=== PATIENT | female | born 1970 | race Caucasian/White ===

== ENCOUNTER 2016-11-26 14:51 | Emergency (ER) | payer MEDICARE ==
[~2016-11-26 14:51] MED LIST: ACETAMINOPHEN PO; ADVAIR 250-501 EACH IH; ADVAIR 2501 DISK W/D IH; ADVAIR 2501 DISK W/D PO; ADVAIR 500-501 EACH; ADVAIR INH; ALBUTEROL 0.5ML INH; ALBUTEROL MININEB NEB; ALBUTEROL17 G1 INH; ALBUTEROL17 GM; ALBUTEROL17 GM INH; AMOXICILLIN PO; ATARAX PO; ATROVENT NEB; AUGMENTIN PO; AZITHROMYCIN 250MG PO; AZITHROMYCIN250 MG PO; CELEXA20 MG PO; CIPRO PO; CIPRO250 MG; CLARINEX5 MG PO; COMBIVENT INH14.7 GM; COMBIVENT INH14.7 GM INH; COMBIVENT MININEB INH; COMBIVENT U/D3 M1; DUONEB 2.5-0.5 M3 ML HHN; DUONEB 2.5-0.5 M3 ML NEB; FLAGYL PO; FLAGYL250 M1; HCTZ PO; KCL 10 MEQ PO; LEVAQUIN PO; LEXAPRO PO; LORTAB 7.5-5001 TAB PO; MEDROL PO; MEDROL4 MG/DOSE- PO; NAPROSYN500 MG PO; PEN-VEE K; PHENERGAN PO; PHENERGAN25 MG PO; PREDNISONE 20 MG PO; PREDNISONE PO; PRILOSEC PO; PRILOSEC20 MG PO; PROTONIX PO; PROVENTIL0.83 MG/ML IH; ROBITUSSIN A-C S5 ML PO; ROBITUSSIN A-C-S1 ML PO; SINGULAIR PO; VIBRAMYCIN100 M1 PO; VICODIN 5/1 TAB 5/50 PO; VICODIN 5/500 T1 TAB PO; ZITHROMAX PO; ZYRTEC PO; ZYRTEC10 M2 PO; [UNRECOGNIZED DRUG - OTHER]
[2016-11-26 18:02] LABS: BASOPHIL# 0.1 X10e3 (0-0.3); BASOPHIL% 1.1 % (0-2.5); EOSINOPHIL# 0.7 X10e3 (0-0.7); EOSINOPHIL% 5.8 % (0.0-7.0); HEMATOCRIT 35.7 % (35.0-45.0); HEMOGLOBIN 11.6 gm/dL (12.0-16.0); LYMPHOCYTE# 3.5 X10e3 (1.0-3.5); LYMPHOCYTE% 26.9 % (17.0-45.0); MEAN CELL VOLUME 92.2 FL (83-96); MEAN CORPUSCULAR HEMOGLOBIN 30.1 PG (28-34); MEAN CORPUSCULAR HGB CONC 32.7 g/dL (30-36); MEAN PLATELET VOLUME 7.8 FL (6.5-11.5); MONOCYTE# 0.7 X10e3 (0-1.0); MONOCYTE% 5.2 % (3.0-12.0); NEUTROPHIL# 7.9 X10e3 (1.5-7.1); PLATELET COUNT 442 X10e3 (140-420); RED BLOOD COUNT 3.87 X10e (3.90-5.30); RED CELL DISTRIBUTION WIDTH 13.2 % (11.0-15.5); WHITE BLOOD COUNT 12.9 X10e3 (4.0-10.5)
[2016-11-26 18:06] LABS: DIFF IND NO
== END 2016-11-26 18:27 | disposition home or self-care (01) ==
LOC: CED 14:51
PROVIDERS: Emergency Medicine
DX: T81.4XXA Infection following a procedure, initial encounter (principal); J45.909 Unspecified asthma, uncomplicated; J44.9 Chronic obstructive pulmonary disease, unspecified; Z98.890 Other specified postprocedural states
CPT/HCPCS: 36415; 85025; 87070; 87077; 87186; 87205; 99283

== ENCOUNTER 2017-01-31 21:22 | Emergency (ER) | payer MEDICARE ==
--- NOTE | ~2017-01-31 | CR173 ---
[facility] A Service of [facility] RADIOLOGY TEXT RESULTS PATIENT: MARION NGUYEN LOCATION: CFTX : 70 UNIT #: [id number] AGE: [address]: Vero Lazar APRN SEX: F ORDER DR: [id number] [facility] [address]. [place], [place] [address] [id number] MR#: [id number] Acc #: [id number] NAME: MARION NGUYEN : 1970 SEX: F STUDY DATE/TIME: 02/01/2017 0:15 UNIT: CFTX ROOM: STUDY DESCRIPTION: CR Knee 3 Views Rt Attending Physician: Vero Lazar A.P.R.N. Ordering Physician: Vero Lazar A.P.R.N. [facility] REPORT This report is preliminary unless electronic signature is present EXAM Right knee, 3 views. HISTORY Lateral knee pain since yesterday. No injury. FINDINGS Three views of the right knee demonstrate normal bone alignment. Minimal joint space narrowing in the medial compartment and small medial joint line marginal osteophyte. There are also mild degenerative changes in the patellofemoral joint. No fracture or effusion. IMPRESSION Mild degenerative changes in the medial and patellofemoral compartments. No acute findings. Dictated by... Butch Bay M.D. THIS IS AN ELECTRONICALLY VERIFIED REPORT Butch Bay M.D. at 02/01/2017 4:39 AM GUS/marlin TD: 02/01/2017 01:06 JOB #: [id number] MEDICAL IMAGING REPORT Page 1 of 1 COPY
== END 2017-02-01 01:20 | disposition home or self-care (01) ==
LOC: CFTX 21:22 → CED 21:22 → CFTX 23:55
DX: M25.561 Pain in right knee (principal)
CPT/HCPCS: 29530; 36415; 73562; 85379; 96372; 99283; J1885

== ENCOUNTER 2017-02-08 19:42 | Observation (INO) | payer MEDICARE ==
[~2017-02-08] VITALS: Ht 162.6 cm; Wt 70.8 kg
--- NOTE | ~2017-02-08 | HP ---
Unit #: [id number] #: [id number] Patient: MARION NGUYEN [id number] [address] [place], [place] [address] [id number] I MR#: [id number] NAME: MARION NGUYEN ROOM: 201 Age: 46 Sex: F Admission Date: 02/09/2017 : 1970 Attending Physician: Lindsay Morris M.D. Primary Care Physician: Farheen Marin A.P.R.N. HISTORY AND PHYSICAL CHIEF COMPLAINT Clipped lap band with dysphagia and hypokalemia. HISTORY This 46-year-old female with asthma, lap band placement 2010, is admitted for dysphagia and hypokalemia. Patient states that over the past two weeks she notes progressive dysphagia with pressure-like sensation in her chest after eating. Symptoms are worse with solids than liquids. She has to self-induce emesis when this occurs. Also noted that her urine is more malodorous, and she is experiencing exertional fatigue. She presented to this emergency department late last evening with stable vital signs. She has a potassium of 2.1. Chest x-ray shows a flipped lap band. Patient states that her lap band flipped at least a couple times in the past and was manipulated by her surgeon at [facility]. Labs are also notable for pyuria. In the ER, she was treated with oral potassium, being treated with 4 runs, 2 L of saline, Pepcid and a gram of Rocephin. PAST MEDICAL HISTORY 1. Diverticular disease. 2. Asthma requiring intubation x2 in the past. 3. Lab band placement in 2010. 4. Cholecystectomy. 5. . 6. BTL. 7. Right carpal tunnel release. 8. Tummy tuck. 9. Breast lift with augmentation. ALLERGIES No known drug allergies. HOME MEDICATIONS 1. Zyrtec. 2. Singulair. 3. Albuterol. 4. Duo-Nebs. 5. Advair. FAMILY HISTORY Asthma and breast cancer. SOCIAL HISTORY Unit #: [id number] #: [id number] Patient: MARION NGUYEN The patient lives with her two daughters. She stopped smoking 3 years ago, does not drink alcohol. REVIEW OF SYSTEMS Notable for dysphagia, exertional weakness, malodorous urine, diverticular disease, asthma, above mentioned surgeries. All other systems were reviewed and otherwise negative. REVIEW OF SYSTEMS Notable for cough, fever, shortness of breath, PTSD, aortic insufficiency, anxiety, depression, reflux, asthma, DJD, GRICEL, hypertension, T and A, D and C, hysterectomy, cholecystectomy, T and A. All other systems reviewed are negative. PHYSICAL GENERAL: Pleasant 46-year-old female, currently in no acute distress. VITAL SIGNS: Temperature 98.4, pulse 80, respirations 18, blood pressure 111/79. O2 saturation is 99% on room air. HEENT: Eyes PERRLA. Extraocular muscles are intact. Pharynx is benign. NECK: Supple without adenopathy or thyromegaly. CHEST: Clear. CARDIAC: Normal S1 and S2 without murmur. ABDOMEN: Bowel sounds are present. Patient has a lap band in the mid abdomen, no hepatosplenomegaly or other masses. Nontender. EXTREMITIES: Without C, C or E. Pedal pulses are present. NEUROLOGIC: Patient is awake, alert, oriented. Cranial nerves are intact. Equal strength throughout. DIAGNOSTIC STUDIES LABORATORY: Admission labs - hematocrit is 38.2, white blood count is 11.3, platelet count is 467. SMA-12 - potassium is 2.1, chloride is 90, CO2 is 37. Magnesium is normal. Urinalysis - positive leukocyte esterase, 5-10 red cells, 25-50 white cells, 3+ bacteria. Urine tox screen negative. CARDIOVASCULAR: EKG - sinus bradycardia, rate 57. Nonspecific ST wave abnormalities which may be related to the patient's low potassium. ASSESSMENT 1. Dysphagia with flipped lap band. 2. Hypokalemia secondary to poor p.o. intake. 3. UTI. 4. Stable asthma. PLANS 1. IV fluids. 2. Replace potassium. 3. H2 blockers and Zofran. 4. Will consult Dr. Octavio Alonso in the morning to see for flipped lap band. 5. Antibiotics. 6. SCDs for DVT prophylaxis. Unit #: [id number] #: [id number] Patient: MARION NGUYEN Dictated by Everett Cortez/stefany TD: 02/09/2017 05:10 JOB #: [id number] CC: [facility] HISTORY AND PHYSICAL Page 1 of 1 X Lindsay Morris MD X HISTORY AND PHYSICAL
--- NOTE | ~2017-02-08 | EKG ---
PATIENT: MARION NGUYEN UNIT #: [id number] Ventricular Rate: 57 BPM Atrial Rate: 57 BPM P-R Interval: 188 ms QRS Duration: 98 ms Q-T Interval: 414 ms QTC Calculation(Bezet): 402 ms P [place]: 72 degrees Calculated R [place]: 69 degrees Calculated T [place]: 60 degrees Diagnosis Line: Sinus bradycardia with marked sinus arrhythmia Diagnosis Line: Nonspecific ST abnormality Diagnosis Line: Abnormal ECG Diagnosis Line: No previous ECGs available Diagnosis Line: Confirmed by JENNYFER DAS MD ([id number]) on Diagnosis Line: 02/09/2017 10:54:02 AM INTERPRETING MD: THIAGO ALEXANDRE
--- NOTE | ~2017-02-08 | CO ---
Unit #: [id number] #: [id number] Patient: MARION NGUYEN [id number] [address] [place], [place] [address] [id number] I MR#: [id number] NAME: MARION NGUYEN ROOM: 201 Age: 46 Sex: F Admission Date: 02/09/2017 : 1970 Attending Physician: Brennon Hein M.D. Primary Care Physician: Farheen Marin A.P.R.N. Consultation Date: 02/09/2017 CONSULTATION REPORT BRIEF HISTORY The patient is a 46-year-old lady, who has had a Lap-Band since 2010, last adjustment 4 months ago with 24-hour history of nausea, vomiting, and dysphagia. She at this time swallows now liquids. She was admitted to the hospital and the medicine team found her to have a potassium of 2.1. Denies abdominal pain. PAST MEDICAL HISTORY She is in the Lap-Band as mentioned in 2010. Does have a history of diverticulosis. PAST SURGICAL HISTORY She has had a cholecystectomy and a section. MEDICATIONS Singulair, Zyrtec, Advair and Ventolin. SOCIAL HISTORY No smoking. No alcohol. FAMILY HISTORY Negative for GI malignancy. REVIEW OF SYSTEMS No cardiopulmonary complaints at this time. Else, 10 systems were reviewed and negative. PHYSICAL EXAMINATION GENERAL: She is awake, alert, and appropriate, currently afebrile. HEENT: Unremarkable. NECK: Supple. No JVD. Trachea midline. LUNGS: Clear to auscultation bilaterally. Breath sounds symmetric. CARDIOVASCULAR: Regular rate and rhythm. ABDOMEN: Soft, nontender, and nondistended. I palpate no masses. No hepatosplenomegaly. EXTREMITIES: No clubbing, cyanosis, or edema. DIAGNOSTIC STUDIES LABORATORY RESULTS: Show white count of 11, hemoglobin of 12.7. Chemistries show a potassium of 2.1. Liver function studies are normal. ASSESSMENT AND PLAN 1. Edema at Lap-Band with gastric outlet obstruction. 2. Hypokalemia. Unit #: [id number] #: [id number] Patient: MARION NGUYEN PLAN 1. We will remove fluid from her Lap-Band. If able to drink liquids, okay to allow swelling to resolve and then consider upper GI versus further adjustment of the band. 2. We would correct potassium. Dictated by... Everett Powell/talha TD: 02/10/2017 01:49 JOB #: [id number] CONSULTATION REPORT Page 1 of 1 X Linden Otto MD X CONSULTATION REPORT
--- NOTE | ~2017-02-08 | CR72 ---
[facility] A Service of [facility] RADIOLOGY TEXT RESULTS PATIENT: MARION NGUYEN LOCATION: [facility] : 70 UNIT #: [id number] AGE: [address]: Brennon Hein MD SEX: F ORDER DR: [id number] [facility] [address] [place], [place] [address] [id number] MR#: [id number] Acc #: [id number] NAME: MARION NGUYEN : 1970 SEX: F STUDY DATE/TIME: 02/08/2017 22:15 UNIT: [facility] ROOM: [facility] STUDY DESCRIPTION: CR Chest Single View Portable Attending Physician: Brennon Hein M.D. Ordering Physician: Whitley Piedra M.D. Primary Care Physician: Shahzad EscotoRShaheed MEDICAL IMAGING REPORT This report is preliminary unless electronic signature is present EXAM Portable chest. INDICATIONS Chest pain and cough beginning 2 weeks ago. PROCEDURE Frontal view of the chest. COMPARISON 03/29/2015. FINDINGS Heart size is normal. No dense consolidation visible pleural fluid or pneumothorax. Lap band in place. The lap band has a different orientation than on the comparison study. Has a more vertical orientation as opposed to a more horizontal orientation on the prior. IMPRESSION 1. No active process in the chest. 2. Change in the orientation of the lap-band, now positioned more vertically compared with 03/29/2015. Correlate with any interval manipulation or current upper abdominal symptoms. Dictated by... Wai Rivas M.D. THIS IS AN ELECTRONICALLY VERIFIED REPORT Wai Rivas M.D. at 02/13/2017 8:57 AM EED/gz TD: 02/09/2017 08:37 JOB #: [id number] [facility] A Service of [facility] RADIOLOGY TEXT RESULTS PATIENT: MARION NGUYEN LOCATION: [facility] : 70 UNIT #: [id number] AGE: [address]: Brennon Hein MD SEX: F ORDER DR: MEDICAL IMAGING REPORT Page 1 of 1 COPY
--- NOTE | ~2017-02-08 | OR ---
Unit #: [id number] #: [id number] Patient: MARION NGUYEN [id number] [address] [place], [place] [address] [id number] I MR#: [id number] NAME: MARION NGUYEN ROOM: 201 Date of Procedure: 02/09/2017 Admission Date: 02/09/2017 Surgeon: Linden Otto M.D. : 1970 Attending Physician: Brennon Hein M.D. Primary Care Physician: Farheen Marin A.P.R.N. OPERATIVE REPORT PREOPERATIVE DIAGNOSIS Gastric outlet obstruction. POSTOPERATIVE DIAGNOSIS Edema at lap-band. PROCEDURE Adjustment of lap-band with removal of 2 mL of saline. COMPLICATIONS None. INDICATIONS FOR PROCEDURE The patient is a 46-year-old lady, who presents with dysphagia and gastric outlet symptoms secondary to band over inflation. DESCRIPTION OF PROCEDURE The patient was placed in the supine position and her anterior abdominal wall was prepped and draped over the lap band port. A Wang needle was then placed transdermal into the lap band port. I then aspirated 2 mL of fluid. The patient was asked to sit up and drink liquids and was able to drink liquids without difficulty. I then withdrew the Wang needle. The patient tolerated the procedure well without complication. Dictated by... Everett Powell/talha TD: 02/10/2017 01:59 JOB #: [id number] Unit #: [id number] #: [id number] Patient: MARION NGUYEN OPERATIVE REPORT Page 1 of 1 X Linden Otto MD X PROCEDURE OPERATIVE NOTE
--- NOTE | ~2017-02-08 | DS ---
Unit #: [id number] #: [id number] Patient: MARION NGUYEN [id number] [address] [place], [place] [address] [id number] I MR#: [id number] NAME: MARION NGUYEN ROOM: 201 Age: 46 Sex: F Admission Date: 02/09/2017 : 1970 Discharge Date: 02/09/2017 Attending Physician: Brennon Hein M.D. Primary Care Physician: Farheen Marin DISCHARGE SUMMARY REASON FOR ADMISSION Intractable nausea, vomiting, dysphagia, slipped lap band, and hypokalemia. HISTORY OF PRESENT ILLNESS/HOSPITAL COURSE Please refer to H and P for complete details. The patient underwent consultation by [facility] associate, Dr. Otto saw and evaluated the patient. Fluid was removed approximately 2 mL. Afterwards, the patient was able to tolerate p.o. well who was noted on initial potassium level was 2.1. She was given six runs of IV potassium while here, repeat was 2.8. She will be given a prescription for 20 mEq of potassium K-Dur p.o. b.i.d. x4 additional days. Remainder of her medications are the same. Also, noted she did have an abnormal urinalysis with culture currently pending. We will give her prescription for Cipro 500 mg p.o. b.i.d. x5 days. She was given Rocephin while here. At the current time, patient is tolerating p.o. well without difficulty. She is clinically stable for discharge home. FINAL DISCHARGE DIAGNOSES 1. Slipped lap band. 2. Intractable nausea and vomiting. 3. Dysphagia. 4. Hypokalemia. 5. Urinary tract infection. 6. Obesity. 7. Allergic rhinitis history. DISCHARGE MEDICATIONS Advair 250/50 one puff b.i.d., albuterol-aerosol solution q.4 p.r.n., Zyrtec 10 mg p.o. daily, Singulair 10 mg p.o. daily, Cipro 500 mg p.o. b.i.d. x5 days, and 20 mEq of K-Dur p.o. b.i.d. x4 days. The patient is instructed to have a repeat BMP within 3 to 4 days post discharge with primary care physician. Laboratory slip was given to the patient. DISCHARGE DISPOSITION Home. DISCHARGE CONDITION Stable. Dictated by... Unit #: [id number] #: [id number] Patient: MARION NGUYEN Everett Rees/talha TD: 02/12/2017 05:27 JOB #: [id number] DISCHARGE SUMMARY Page 1 of 1 X Brennon Hein MD X DISCHARGE SUMMARY
[2017-02-08 21:14] LABS: BASOPHIL# 0.1 X10e3 (0-0.3); EOSINOPHIL# 0.3 X10e3 (0-0.7); EOSINOPHIL% 2.3 % (0.0-7.0); HEMATOCRIT 38.2 % (35.0-45.0); HEMOGLOBIN 12.7 gm/dL (12.0-16.0); LYMPHOCYTE# 3.2 X10e3 (1.0-3.5); MEAN CELL VOLUME 85.7 FL (83-96); MEAN CORPUSCULAR HEMOGLOBIN 28.4 PG (28-34); MEAN CORPUSCULAR HGB CONC 33.1 g/dL (30-36); MEAN PLATELET VOLUME 7.8 FL (6.5-11.5); MONOCYTE# 0.7 X10e3 (0-1.0); MONOCYTE% 6.3 % (3.0-12.0); NEUTROPHIL# 7.1 X10e3 (1.5-7.1); NEUTROPHIL% 62.4 % (40-75); PLATELET COUNT 467 X10e3 (140-420); RED BLOOD COUNT 4.46 X10e (3.90-5.30); RED CELL DISTRIBUTION WIDTH 13.8 % (11.0-15.5); WHITE BLOOD COUNT 11.3 X10e3 (4.0-10.5)
[2017-02-08 21:18] LABS: DIFF IND NO
[2017-02-08 21:55] LABS: ALBUMIN SERUM 3.8 g/dL (3.5-5.0); BILIRUBIN, DIRECT 0.1 mg/dL (0.0-0.2); BILIRUBIN,INDIRECT 0.3 mg/dL (0.0-0.9); BILIRUBIN,TOTAL 0.4 mg/dL (0.2-2.0); BUN/CREATININE RATIO 12.72; CALCIUM SERUM 9.8 mg/dL (8.4-10.2); CREATININE SERUM 1.1 mg/dL (0.6-1.4); GLOM FILT RATE Estimated 60.2 mL/min (>60); PROTEIN TOTAL SERUM 7.4 g/dL (6.0-8.3)
[2017-02-08 21:58] LABS: POTASSIUM 2.1 mmol/L (3.5-5.1)
[2017-02-08 23:11] LABS: URINE SOURCE CLEAN CATCH
[2017-02-08 23:12] LABS: POC - CKMB 1.1 ng/mL (0.0-7.9); POC - TROPONIN <0.05 ng/mL (<=0.05)
[2017-02-08 23:15] LABS: URINE APPEARANCE CLOUDY; URINE BLOOD TRACE (NEG); URINE COLOR DK YELLOW; URINE GLUCOSE NEG (NEG); URINE KETONE 1+ (NEG); URINE LEUKOCYTE ESTERASE 1+ (NEG); URINE NITRATE NEG (NEG); URINE PH 5.5 (5-8); URINE PROTEIN 1+ (NEG); URINE SPECIFIC GRAVITY 1.031 (1.003-1.035)
[2017-02-08 23:18] LABS: CULTURE INDICATED? YES; URINE BACTERIA AUWI 3+ (NEGATIVE); URINE SQUAMOUS EPITHELIAL CELL NONE SEEN /[HPF]; UWBCS1 AUWI 25-50 (0-5)
[2017-02-08 23:36] LABS: URINE BILIRUBIN NEG (NEG)
[2017-02-08 23:37] LABS: AMPHETAMINE NEG (NEG); BARBITURATES NEG (NEG); BENZODIAZEPINES NEG (NEG); COCAINE NEG (NEG); MARIJUANA NEG (NEG); OPIATES NEG (NEG); TRICYCLIC ANTIDEPRESSANTS NEG (NEG); U HYALINE CASTS AUWI 0-2 /[LPF]; U METHADONE NEG (NEG); URINE CRYSTALS CALCIUM OXALATE /[HPF]; URINE MUCUS PRESENT
[2017-02-09 00:59] LABS: POC - CKMB <1.0 ng/mL (0.0-7.9); POC - TROPONIN <0.05 ng/mL (<=0.05)
[2017-02-09] MEDS ORDERED: ZYRTEC10 M1 PO (03:53)
[2017-02-09] MEDS ORDERED: SINGULAIR PO (03:53)
[2017-02-09] MEDS ORDERED: ADVAIR 250-501 EAC1 INH (03:54)
[2017-02-09] MEDS ORDERED: ALBUTEROL17 GM INH ×2 (03:56→04:00)
[2017-02-09] MEDS ORDERED: CIPRO PO (11:00)
[2017-02-09] MEDS ORDERED: KLOR-CON PO (12:04)
== END 2017-02-09 13:09 | disposition home or self-care (01) ==
LOC: CED 19:42 → C2A 02-09 00:40 → CEDOF 02-09 00:40 → CED 02-09 00:45 → CEDOF 02-09 00:45 → C2A 02-09 02:40 → CEDOF 02-09 02:40 → C2A 02-09 08:10
PROVIDERS: Emergency Medicine; Internal Medicine
DX: K95.09 Other complications of gastric band procedure (principal); R11.2 Nausea with vomiting, unspecified; R13.10 Dysphagia, unspecified; E87.6 Hypokalemia; N39.0 Urinary tract infection, site not specified; E66.9 Obesity, unspecified; J45.909 Unspecified asthma, uncomplicated; Z68.26 Body mass index [BMI] 26.0-26.9, adult; Z87.891 Personal history of nicotine dependence; Z79.51 Long term (current) use of inhaled steroids; Z79.899 Other long term (current) drug therapy; Z90.49 Acquired absence of other specified parts of digestive tract; Z98.51 Tubal ligation status; Z98.890 Other specified postprocedural states; Y83.8 Other surgical procedures as the cause of abnormal reaction of the patient, or of later complication, without mention of misadventure at the time of the procedure
CPT/HCPCS: 36415; 71010; 80048; 80076; 80307; 81003; 82553; 83690; 83735; 84132; 84484; 84703; 85025; 87086; 87088; 87186; 93005; 94640; 94760; 96361; 96365; 96375; 96376; 99285; G0378; J0696; J2270